=== PATIENT | male | born 1965 | race Two or more races ===

== ENCOUNTER 2019-01-05 19:41 | Emergency (ER) | payer OTHER ==
[~2019-01-05] VITALS: Ht 180.3 cm; Wt 113.4 kg
[~2019-01-05 19:41] MED LIST: CYCLOBENZAPRINE10 MG ORAL; IBUPROFEN800 MG ORAL; METFORMIN HCL1000 M1 ORAL; METOPROLOL SUCC25 MG ORAL; SIMVASTATIN10 MG ORAL
[2019-01-05] MEDS ORDERED: GLIPIZIDE XL10 MG ORAL (19:53)
--- NOTE | 2019-01-05 20:01 | Emergency Room Report ---
History of Present Illness General Chief Complaint: Upper Extremity Injury Source: Patient Present Illness HPI Patient presents with trauma to the left fourth finger Reports that this morning about 8:30 in the morning he was opening up a locker the lock was somewhat jammed and wants a lucent the locker had a crush type injury of the left finger Denies any wrist pain denies any elbow pain Initially there was more of a purple discoloration that has improved however he still has pain with flexion of the digit Allergies: Coded Allergies: Cultivated Oat Pollen (Unverified Allergy, Unknown, 11/11/15) LISINOPRIL (Verified Allergy, Unknown, 01/05/19) Patient History Past Medical History: see triage record Pertinent Family History: none Reviewed Nursing Documentation: PMH: Agreed; PSxH: Agreed Nursing Documentation-PMH Past Medical History: No History, Except For Hx Diabetes: Yes - Type 2 diabetes. Review of Systems All Other Systems: negative except mentioned in HPI Physical Exam Vital Signs Date Time Temp Pulse Resp B/P (MAP) Pulse Ox O2 Delivery O2 Flow Rate FiO2 01/05/19 19:45 97.9 68 12 140/84 96 Sp02 EP Interpretation: reviewed, normal General Appearance: well appearing Head: normocephalic, atraumatic Eyes: bilateral eye PERRL, bilateral eye EOMI ENT: normal pharynx Neck: supple Respiratory: lungs clear, no retraction, no accessory muscle use Cardiovascular #1: regular rate, rhythm, no edema Musculoskeletal: swelling - Left fourth digit able to flex however does have increased pain distally Neurologic: alert, oriented x3 Skin: other - Mild bruising to the base of left finger Lymphatic: no adenopathy Procedures Splinting Splinting : Consent: Verbal Location: Left fourth digit Pre-Made Type: Splint: Finger splint Pre-Proc Neuro Vasc Exam: normal Post-Proc Neuro Vasc Exam: normal Patient Tolerated: Well Complications: None Medical Decision Making Diagnostic Impression: Primary Impression: Injury of right upper extremity ER Course Given the patient's history and presentation imaging studies obtained At rest patient does have a mild extension of the distal aspect of the fourth digit this raises question of possible tendon injury X-ray imaging does not show any acute pathology Patient has a splint applied for the finger Requires close follow-up with residential supervisor for further outpatient care possible hand specialty has needed Other X-Ray Diagnostic Results Other X-Ray Diagnostic Results : X-Ray ordered: Left hand # of Views/Limited Vs Complete: 3 View Indication: Pain EP Interpretation: Yes Interpretation: no dislocation, no soft tissue swelling, no fractures Impression: No acute disease Electronically Signed by: Guilherme Whittaker DO Last Vital Signs Date Time Temp Pulse Resp B/P (MAP) Pulse Ox O2 Delivery O2 Flow Rate FiO2 01/05/19 19:45 97.9 68 12 140/84 96 Status: improved Disposition: HOME, SELF-CARE Condition: Improved Scripts Ibuprofen* (MOTRIN*) 600 Mg Tablet 600 MG ORAL Q8H PRN for For Pain, #20 TAB 0 Refills Prov: Guilherme Whittaker DO 01/05/19 Additional Instructions: Patient is provided with the discharge instructions notified to follow up with primary doctor in the next 2-3 days otherwise return to the er with any worsening symptoms. Please note that this report is being documented using [employer] technology. This can lead to erroneous entry secondary to incorrect interpretation by the dictating instrument. Guilherme Whittaker DO Jan 05, 2019 20:01
[2019-01-05 20:24] VITALS: BP 140/84
[2019-01-05] MEDS ORDERED: IBUPROFEN600 MG ORAL (20:51)
[2019-01-05 21:00] VITALS: BP 138/81
--- NOTE | 2019-01-05 23:35 | Diagnostic Imaging Report ---
EXAM: XR Left Hand Complete, 3 or More Views CLINICAL HISTORY: TRAUMA TECHNIQUE: Frontal, lateral and oblique views of the left hand. COMPARISON: No relevant prior studies available. FINDINGS: Bones/joints: Unremarkable. No acute fracture. No dislocation. Soft tissues: Unremarkable. No radiopaque foreign body. IMPRESSION: Normal left hand x-rays.
== END 2019-01-05 21:00 | disposition home or self-care (01) ==
LOC: EMR 20:05
DX: S69.92XA Unspecified injury of left wrist, hand and finger(s), initial encounter (principal); W23.0XXA Caught, crushed, jammed, or pinched between moving objects, initial encounter; Y92.89 Other specified places as the place of occurrence of the external cause; Y92.242 Post office as the place of occurrence of the external cause; Y99.0 Civilian activity done for income or pay; Z88.8 Allergy status to other drugs, medicaments and biological substances; E11.9 Type 2 diabetes mellitus without complications
CPT/HCPCS: 29130; 99283